=== PATIENT | male | born 1955 | race Caucasian/White ===

== ENCOUNTER 2017-11-30 07:25 | Day surgery (SDC) | payer BC ==
[~2017-11-30] VITALS: Ht 172.7 cm; Wt 84.3 kg
[~2017-11-30 07:25] MED LIST: Ascorbic Acid,Ester- PO; Coumadin,Jantoven PO; INDOCIN50 MG PO; Senokot S,Pericolace PO; TYLENOL REGULA325 MG PO; Theragran PO; oxyCODONE PO
[2017-11-30 08:00] VITALS: BP 142/82
[2017-11-30 08:01] VITALS: BP 142/82
[2017-11-30 12:30] VITALS: BP 169/90
[2017-11-30 13:30] VITALS: BP 158/95
== END 2017-11-30 14:00 | disposition home or self-care (01) ==
LOC: SDC 07:25 → ENRESERV 08:01 → SDC 09:51
PROC: 0RRJ0J7 Replacement of Right Shoulder Joint with Synthetic Substitute, Glenoid Surface, Open Approach (ICD-10-PCS; principal; 2017-11-30)
DX: M19.011 Primary osteoarthritis, right shoulder (principal); Z87.891 Personal history of nicotine dependence
CPT/HCPCS: C1713; J0131; J0690; J1100; J1170; J2250; J2405; J2795; J3010; J7050; J7120; S0020